=== PATIENT | male | born 1975 | race Two or more races ===

== ENCOUNTER 2016-10-10 05:50 | Emergency (ER) | payer MEDICAID ==
[~2016-10-10] VITALS: Ht 180.3 cm; Wt 116.1 kg
[2016-10-10] MEDS ORDERED: AMLODIPINE BESYL5 MG ORAL (05:55)
[2016-10-10 06:00] VITALS: BP 152/95
[2016-10-10] MEDS ORDERED: Acetaminophen 500mg (ES) tab ORAL ONE (06:00)
--- NOTE | 2016-10-10 06:27 | Emergency Room Report ---
History of Present Illness General Chief Complaint: Headache Source: Patient Present Illness HPI Is a 41-year-old male who was recently diagnosed with hypertension. He was admitted to [facility] for alcohol withdrawal and high blood pressure. He was prescribe Norvasc 5 mg and Zofran. When he picked up his medication he didn 't pay attention to it. He's been taking it for last 2 days but said he still is having headache and dizziness. His Norvasc returned goods inspector to be folic acid and was prescribed for someone else. He called 911. Pain is throbbing nature. 10 out of 10. No focal deficit. No longer drinking. Denies any alcohol or drug use. Allergies: Coded Allergies: No Known Allergies (Unverified , 10/10/16) Patient History Past Medical History: see triage record, old chart reviewed, HTN Past Surgical History: other Pertinent Family History: none Social History: Reports: alcohol use Immunizations: other Reviewed Nursing Documentation: PMH: Agreed, PSxH: Agreed Nursing Documentation-PMH Hx Hypertension: Yes Review of Systems Eye: Denies: blurred vision, eye pain ENT: Denies: ear pain, nose congestion, throat swelling Respiratory: Denies: cough, shortness of breath Cardiovascular: Denies: chest pain, palpitations Gastrointestinal: Denies: abdominal pain, diarrhea, nausea, vomiting Musculoskeletal: Denies: back pain, joint pain Skin: Denies: rash Neurological: Denies: headache, numbness Endocrine: Denies: increased thirst, increased urine Hematologic/Lymphatic: Denies: easy bruising All Other Systems: negative except mentioned in HPI Physical Exam Vital Signs Date Time Temp Pulse Resp B/P Pulse Ox O2 Delivery O2 Flow Rate FiO2 10/10/16 05:49 97.9 90 16 166/111 97 Room Air vitals with hypertension Sp02 EP Interpretation: reviewed, normal General Appearance: well appearing, no apparent distress, alert Head: normocephalic, atraumatic Eyes: bilateral eye EOMI, bilateral eye PERRL ENT: hearing grossly normal, normal pharynx Neck: full range of motion, supple, no meningismus Respiratory: chest non-tender, lungs clear, normal breath sounds Cardiovascular #1: regular rate, rhythm, no murmur Gastrointestinal: normal bowel sounds, non tender, no mass, no organomegaly, no bruit, non-distended Musculoskeletal: back normal, gait/station normal, normal range of motion Psychiatric: mood/affect normal Skin: warm/dry Medical Decision Making Diagnostic Impression: Primary Impression: Headache Qualified Codes: R51 - Headache Additional Impression: Hypertension Qualified Codes: I10 - Essential (primary) hypertension ER Course Is presents with headache positive for hypertension. No evidence of intracranial bleed. He had recent blood work done at [facility] already. I see no need for repeat. Blood pressure much improved we will discharge home. CT/MRI/US Diagnostic Results CT/MRI/US Diagnostic Results : Imaging Test Ordered: CT head Impression negative per radiologist Last Vital Signs Date Time Temp Pulse Resp B/P Pulse Ox O2 Delivery O2 Flow Rate FiO2 10/10/16 06:07 86 152/95 10/10/16 06:00 97.9 20 98 Room Air Status: improved Disposition: HOME, SELF-CARE Condition: Stable Scripts Amlodipine Besylate (Norvasc) 10 Mg Tablet 10 MG ORAL DAILY, #30 TAB Prov: JEANNE PATEL M.D. 10/10/16 Additional Instructions: Followup with your DrAnisha in 7 days. Return if symptom worsen. JEANNE PATEL M.D. Oct 10, 2016 06:27
[2016-10-10 06:48] VITALS: BP 140/92
[2016-10-10] MEDS ORDERED: NORVASC10 MG ORAL (06:49)
[2016-10-10 06:50] VITALS: BP 140/92
--- NOTE | 2016-10-10 09:17 | Diagnostic Imaging Report ---
Indication: Headache Technique: Continuous helical CT scanning of the head was performed utilizing automated exposure control without intravenous contrast material. Axial and coronal reconstructions were obtained. Comparison: None CT dose: Total DLP 1390 mGycm; CTDI vol 70.4 mGy Findings: There is no acute intracranial hemorrhage, mass effect or cortical edema. The ventricles, cisterns and sulci are within normal limits for age. The posterior fossa and fourth ventricle are unremarkable. Sellar and suprasellar regions are grossly unremarkable. Visualized mastoid air cells and paranasal sinuses are unremarkable. Nodular scalp densities are present posteriorly. There is no skull fracture. Impression: No evidence of acute intracranial hemorrhage, mass effect or cortical edema. MRI may be obtained for more sensitive evaluation as clinically indicated. Nonspecific nodular posterior scalp densities. Clinical correlation recommended with further evaluation as indicated. The CT scanner at [facility] is accredited by the [employer] and the scans are performed using protocols designed to limit radiation exposure to as low as reasonably achievable to attain images of sufficient resolution adequate for diagnostic evaluation.
== END 2016-10-10 07:15 | disposition home or self-care (01) ==
LOC: EDBD 05:50 → EMR 07:01
DX: R51 Headache (principal); I10 Essential (primary) hypertension
CPT/HCPCS: 70450; 99284